=== PATIENT | female | born 1960 | race Caucasian/White ===

== ENCOUNTER 2019-07-08 13:22 | Outpatient (CLI) | payer OTHER ==
--- NOTE | 2019-07-08 13:42 | RAD ---
LEFT HAND 3 VIEWS: Date: 07/08/19 HISTORY: Pain left hand, history of rheumatoid arthritis. FINDINGS: No evidence for acute fracture, dislocation, or other significant acute osseous abnormality. No plain film evidence for significant acute inflammatory arthritis. Focal circumscribed sclerotic density in the distal ulna, evidence for an incidental bone island. IMPRESSION: Unremarkable left hand. POS: [facility]
--- NOTE | 2019-07-08 13:43 | RAD ---
RIGHT HAND 3 VIEWS: Date: 07/08/19 HISTORY: Right hand pain, history of rheumatoid arthritis. FINDINGS: No acute fracture or dislocation. No plain film evidence for significant acute inflammatory arthritis . IMPRESSION: Unremarkable right hand. POS: [facility]
== END 2019-07-08 13:23 | disposition home or self-care (01) ==
LOC: BICRAD 13:22
PROVIDERS: ATTEND Internal Medicine Rheumatology
DX: M05.79 Rheumatoid arthritis with rheumatoid factor of multiple sites without organ or systems involvement (principal); M79.641 Pain in right hand; M79.642 Pain in left hand